=== PATIENT | male | born 2000 ===

== ENCOUNTER 2021-05-10 21:03 | Emergency (ER) | payer BC ==
[2021-05-10] MEDS ORDERED: Sodium Chloride 0.9% 10 ML Syringe FLUSH PRN (21:42)
[2021-05-10] MEDS ORDERED: Sodium Chloride 0.9% 1,000 ML IV ONE (21:43)
[2021-05-10] MEDS ORDERED: Acetaminophen 500 MG Tab PO ONE (21:43)
== END 2021-05-11 03:33 | disposition home or self-care (01) ==
LOC: FB.ED 21:03
DX: T58.91XA Toxic effect of carbon monoxide from unspecified source, accidental (unintentional), initial encounter (principal)
CPT/HCPCS: 36415; 80053; 82375; 83735; 84484; 85025; 93005; 99283; A9270; J7030